=== PATIENT | male | born 1990 | race Caucasian/White ===

== ENCOUNTER 2019-01-09 22:24 | Inpatient (IN) | payer OTHER ==
[2019-01-09] MEDS ORDERED: SODIUM CHLORIDE 0.9% 1,000 ML IV STA (22:36)
[2019-01-09] MEDS ORDERED: HEPARIN SODIUM,PORCINE 10,000 UNIT/ML 1 ML VIAL IV STA (22:36)
[2019-01-09] MEDS ORDERED: DEXTROSE 5% IN WATER 100 ML with AMIODARONE 150 MG IV ONE (23:00)
[2019-01-09] MEDS ORDERED: AMIODARONE 360 MG in DEXTROSE 5% IN WATER 200 ML IV ONE ×2 (23:00)
--- NOTE | 2019-01-09 23:01 | ED ---
Arrhythmia/Palpitations HPI - General Chief Complaint: Arrhythmia/Palpitations Stated Complaint: Rapid Heart Rate Numbness In Hands/Feet Source: patient Mode of arrival: ambulatory Limitations: no limitations - History of Present Illness Initial Comments: Elias is a previously healthy 28-year-old gentleman who presents to the emergency department today for evaluation of palpitations. She reports that when he went to bed tonight he felt like his heart was beating very hard, his who is an ICU nurse felt his pulse and noted that it was very fast and irregular which prompted her to bring him to the emergency department for evaluation. Patient denies any chest pain but does report that while he was coming to the hospital he did begin to feel some shortness of breath and lightheadedness. She denies any previous cardiac history. 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 - Related Data Home Medications Medication Instructions Recorded Confirmed No Known Home Medications 01/09/19 01/09/19 Allergies Allergy/AdvReac Type Severity Reaction Status Date / Time No Known Allergies Allergy Verified 01/09/19 22:44 Review of Systems ROS Statement: Those systems with pertinent positive or pertinent negative responses have been documented in the HPI. ROS Other: All systems not noted in ROS Statement are negative. Past Medical History Past Medical History: Asthma History of Any Multi-Drug Resistant Organisms: None Reported Past Surgical History: Orthopedic Surgery Additional Past Surgical History / Comment(s): right shoulder, wisdom teeth Past Psychological History: No Psychological Hx Reported Smoking Status: Never smoker Past Alcohol Use History: None Reported Past Drug Use History: None Reported General Exam - General Exam Comments Initial Comments: Physical Exam GENERAL: Patient is well-developed and well-nourished. Patient is nontoxic and well-hydrated and is in no distress. HENT: Normocephalic, Atraumatic. EYES: PERRL, EOMI PULMONARY: Unlabored respirations. CARDIOVASCULAR: Irregularly irregular, tachycardic ABDOMEN: Soft and nontender with normal bowel sounds. SKIN: Skin is clear with no lesions or rashes and otherwise unremarkable. : Deferred NEUROLOGIC: Patient is alert and oriented x3. Moving all extremities spontaneously MUSCULOSKELETAL: Normal extremities with adequate strength and full range of motion. No lower ex tremity swelling or edema. No calf tenderness. PSYCHIATRIC: Normal psychiatric evaluation. Limitations: no limitations Limitations: no limitations Course Vital Signs 01/09/19 01/09/19 01/09/19 22:26 22:42 23:00 Temperature 98.4 F Pulse Rate 114 H 150 H 156 H Respiratory 20 18 18 Rate Blood Pressure 136/88 105/85 116/101 O2 Sat by Pulse 100 100 100 Oximetry 01/09/19 01/09/19 01/10/19 23:30 23:56 00:57 Temperature Pulse Rate 158 H 112 H 108 H Respiratory 18 18 18 Rate Blood Pressure 123/97 134/87 125/92 O2 Sat by Pulse 100 100 99 Oximetry EKG Findings - EKG Comments: EKG Findings:: Initial EKG at 2235 narrow complex irregularly irregular tachycardia with a rate of 151 concerning for A. fib with RVR. There is normal axis, QRS 98, QTC prolonged 602. No acute ST elevations or depressions no evidence of acute ischemia or infarction. Repeat EKG obtained at 2258, narrow complex irregularly irregular tachycardia with a rate 175 again concerning for A. fib with RVR. There are 78, QTC [address] elevations depressions no evidence of acute ischemia or infarction Medical Decision Making - Medical Decision Making Patient was seen and evaluated history is obtained from patient at bedside Previously healthy 28-year-old male presenting with palpitations EKG concerning for A. 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 Patient's heart rate improving with amiodarone patient feeling much better heart rate in the 110s Labs were relatively unremarkable TSH is mildly elevated Labs and EKG findings discussed with the patient and at bedside at this time they're agreeable to plan for admission for further evaluation by cardiology - Lab Data Result diagrams: 01/09/19 22:50 01/09/19 22:50 Lab Results 01/09/19 01/09/19 01/09/19 Range/Units 22:50 22:50 22:50 WBC 10.1 (3.8-10.6) k/uL RBC 5.69 (4.30-5.90) m/uL Hgb 16.3 (13.0-17.5) gm/dL Hct 49.3 (39.0-53.0) % MCV 86.6 (80.0-100.0) fL MCH 28.6 (25.0-35.0) pg MCHC 33.0 (31.0-37.0) g/dL RDW 13.2 (11.5-15.5) % Plt Count 244 (150-450) k/uL Neutrophils % 51 % Lymphocytes % 38 % Monocytes % 5 % Eosinophils % 2 % Basophils % 1 % Neutrophils # 5.2 (1.3-7.7) k/uL Lymphocytes # 3.9 (1.0-4.8) k/uL Monocytes # 0.5 (0-1.0) k/uL Eosinophils # 0.2 (0-0.7) k/uL Basophils # 0.1 (0-0.2) k/uL PT 9.6 (9.0-12.0) sec INR 0.9 (<1.2) APTT 24.6 (22.0-30.0) sec Sodium 144 (137-145) mmol/L Potassium 3.7 (3.5-5.1) mmol/L Chloride 109 H (98-107) mmol/L Carbon Dioxide 23 (22-30) mmol/L Anion Gap 12 mmol/L BUN 13 (9-20) mg/dL Creatinine 0.76 (0.66-1.25) mg/dL Est GFR (CKD-EPI)AfAm >90 (>60 ml/min/1.73 sqM) Est GFR (CKD-EPI)NonAf >90 (>60 ml/min/1.73 sqM) Glucose 91 (74-99) mg/dL Calcium 10.0 (8.4-10.2) mg/dL Magnesium 1.9 (1.6-2.3) mg/dL Total Bilirubin 0.4 (0.2-1.3) mg/dL AST 29 (17-59) U/L ALT 53 (21-72) U/L Alkaline Phosphatase 103 (38-126) U/L Troponin I (0.000-0.034) ng/mL Total Protein 8.0 (6.3-8.2) g/dL Albumin 5.0 (3.5-5.0) g/dL TSH 5.120 H (0.465-4.680) mIU/L Urine Opiates Screen (NotDetected) Ur Oxycodone Screen (NotDetected) Urine Methadone Screen (NotDetected) Ur Propoxyphene Screen (NotDetected) Ur Barbiturates Screen (NotDetected) U Tricyclic Antidepress (NotDetected) Ur Phencyclidine Scrn (NotDetected) Ur Amphetamines Screen (NotDetected) U Methamphetamines Scrn (NotDetected) U Benzodiazepines Scrn (NotDetected) Urine Cocaine Screen (NotDetected) U Marijuana (THC) Screen (NotDetected) 01/09/19 01/09/19 Range/Units 22:50 23:20 WBC (3.8-10.6) k/uL RBC (4.30-5.90) m/uL Hgb (13.0-17.5) gm/dL Hct (39.0-53.0) % MCV (80.0-100.0) fL MCH (25.0-35.0) pg MCHC (31.0-37.0) g/dL RDW (11.5-15.5) % Plt Count (150-450) k/uL Neutrophils % % Lymphocytes % % Monocytes % % Eosinophils % % Basophils % % Neutrophils # (1.3-7.7) k/uL Lymphocytes # (1.0-4.8) k/uL Monocytes # (0-1.0) k/uL Eosinophils # (0-0.7) k/uL Basophils # (0-0.2) k/uL PT (9.0-12.0) sec INR (<1.2) APTT (22.0-30.0) sec Sodium (137-145) mmol/L Potassium (3.5-5.1) mmol/L Chloride (98-107) mmol/L Carbon Dioxide (22-30) mmol/L Anion Gap mmol/L BUN (9-20) mg/dL Creatinine (0.66-1.25) mg/dL Est GFR (CKD-EPI)AfAm (>60 ml/min/1.73 sqM) Est GFR (CKD-EPI)NonAf (>60 ml/min/1.73 sqM) Glucose (74-99) mg/dL Calcium (8.4-10.2) mg/dL Magnesium (1.6-2.3) mg/dL Total Bilirubin (0.2-1.3) mg/dL AST (17-59) U/L ALT (21-72) U/L Alkaline Phosphatase (38-126) U/L Troponin I <0.012 (0.000-0.034) ng/mL Total Protein (6.3-8.2) g/dL Albumin (3.5-5.0) g/dL TSH (0.465-4.680) mIU/L Urine Opiates Screen Not Detected (NotDetected) Ur Oxycodone Screen Not Detected (NotDetected) Urine Methadone Screen Not Detected (NotDetected) Ur Propoxyphene Screen Not Detected (NotDetected) Ur Barbiturates Screen Not Detected (NotDetected) U Tricyclic Antidepress Not Detected (NotDetected) Ur Phencyclidine Scrn Not Detected (NotDetected) Ur Amphetamines Screen Not Detected (NotDetected) U Methamphetamines Scrn Not Detected (NotDetected) U Benzodiazepines Scrn Not Detected (NotDetected) Urine Cocaine Screen Not Detected (NotDetected) U Marijuana (THC) Screen Not Detected (NotDetected) Critical Care Time Critical Care Time: Yes Total Critical Care Time: 30 Critical Care Time: Critical Care Critical care time was exclusive of separately billable procedures and treating other patients. Critical care was necessary to treat or prevent imminent or life-threatening deterioration. Critical care was time spent personally by me on the following activities: development of treatment plan with patient or surrogate, discussions with consultants, discussions with primary provider, evaluation of patient's response to treatment, examination of patient, obtaining history from patient or surrogate, ordering and performing treatments and interventions, ordering and review of laboratory studies, ordering and review of radiographic studies, pulse oximetry, re-evaluation of patient's condition and review of old charts. Disposition Clinical Impression: Atrial fibrillation Disposition: ADMITTED IP TO THIS [facility] Condition: Stable Is patient prescribed a controlled substance at d/c from ED?: No
[2019-01-09] MEDS: HEPARIN SOD,PORK IN 0.45% NACL 25,000 UNIT in 0.45% NACL 1 250ML.BAG IV SCH (23:07)
[2019-01-09 23:12] LABS: Basophils # (A) 0.1 k/uL (0-0.2); Basophils % (A) 1 %; Eosinophils # (A) 0.2 k/uL (0-0.7); Eosinophils % (A) 2 %; HCT 49.3 % (39.0-53.0); HGB 16.3 gm/dL (13.0-17.5); Lymphocytes # (A) 3.9 k/uL (1.0-4.8); Lymphocytes % (A) 38 %; MCH 28.6 pg (25.0-35.0); MCV 86.6 fL (80.0-100.0); Mean Platelet Volume 7.4; Monocytes # (A) 0.5 k/uL (0-1.0); Monocytes % (A) 5 %; Neutrophils # (A) 5.2 k/uL (1.3-7.7); Neutrophils % (A) 51 %; Platelet Count 244 k/uL (150-450); RBC 5.69 m/uL (4.30-5.90); RDW 13.2 % (11.5-15.5); WBC 10.1 k/uL (3.8-10.6)
[2019-01-09 23:20] LABS: INR 0.9 (<1.2); Partial Thromboplastin Time 24.6 sec (22.0-30.0); Prothrombin Time 9.6 sec (9.0-12.0)
[2019-01-09 23:24] LABS: ALT 53 U/L (21-72); AST 29 U/L (17-59); Alkaline Phosphatase 103 U/L (38-126); Anion Gap 12 mmol/L; Blood Urea Nitrogen 13 mg/dL (9-20); Carbon Dioxide 23 mmol/L (22-30); Chloride 109 mmol/L (98-107); Glucose 91 mg/dL (74-99); Magnesium 1.9 mg/dL (1.6-2.3); Potassium 3.7 mmol/L (3.5-5.1); Sodium 144 mmol/L (137-145); Total Bilirubin 0.4 mg/dL (0.2-1.3)
[2019-01-09 23:48] LABS: Amphetamine Screen,Urine Not Detected (NotDetected); Barbiturate Screen,Urine Not Detected (NotDetected); Benzodiazepines Screen,Urine Not Detected (NotDetected); Cocaine Screen,Urine Not Detected (NotDetected); Methadone Screen, Urine Not Detected (NotDetected); Opiate Screen,Urine Not Detected (NotDetected); Oxycodone Screen, Urine Not Detected (NotDetected); Phencyclidine Screen,Urine Not Detected (NotDetected); Tricyclic Antidepressant,Urine Not Detected (NotDetected); Urn Cannabinoid Scrn Not Detected (NotDetected)
--- NOTE | 2019-01-09 23:57 | XR ---
EXAM: XR Chest, 1 View CLINICAL HISTORY: ITS.REASON XR Reason: Pain TECHNIQUE: Frontal view of the chest. COMPARISON: No relevant prior studies available. FINDINGS: Lungs: Unremarkable. No consolidation. Pleural space: Unremarkable. No pneumothorax. Heart: No pneumomediastinum. Mediastinum: Unremarkable. Bones/joints: No definite fracture. IMPRESSION: No acute findings.
[2019-01-10] MEDS ORDERED: AMIODARONE 300 MG in DEXTROSE 5% IN WATER 250 ML IV SCH ×2 (05:00)
[2019-01-10 06:40] LABS: Cholesterol 128 mg/dL (<200); HDL Cholesterol 37 mg/dL (40-60); LDL Cholesterol,Calculated 76 mg/dL (0-99); Triglycerides 73 mg/dL (<150)
[2019-01-10] MEDS ORDERED: FLECAINIDE 50 MG TAB PO STA (08:22)
[2019-01-10] MEDS: VERAPAMIL 40 MG TAB PO SCH ×3 (09:03→20:25)
--- NOTE | 2019-01-10 10:31 | P.CRDCN ---
History of Present Illness History of present illness: This is Dr. Narvaez dictating a consult on this patient The patient was interviewed and examined by me IMPRESSION / ASSESSMENT: Paroxysmal atrial fibrillation with RVR Recurrent PLAN: Stop IV amiodarone Start flecainide 100 mg twice daily Observe on telemetry for 24 hours Initiate verapamil 40 mg 3 times a day and upon discharge this can be changed to long-acting verapamil SR 120 mg by mouth daily 2-D echo and Doppler study only once his heart rates are controlled HPI Patient has been feeling ordered and he feels his heart is racing. He came to the hospital and he is found to be in atrial fibrillation RVR He's had brief palpitations in the past but he does not remember having sustained palpitations No chest pain no shortness of breath no dizziness lightheadedness He looks comfortable ROS: No fever chills or rigors, no cough, phlegm or expectoration, no nausea, vomiting or diarrhea, no hematuria, dysuria, no musculoskeletal complaints, no strokes or seizures, no skin lesions. EXAMINATION: Blood pressure 106/77 mmHg, pulse rate was about 130 150 beats a minute did he come back into atrial fibrillation Breath sounds are clear no rhonchi no crackles Heart sounds. Normal no murmurs or gallop. Rhythm is irregular Abdomen soft nontender Extremities warm no edema REVIEW OF LABS, ECG & MEDICAL DATA Hemoglobin 16.3 Sodium 144 potassium 3.7 BUN 13 creatinine 0.76 TSH 5.1 HDL 37 LDL 76 Troponins are normal Past Medical History Past Medical History: Asthma History of Any Multi-Drug Resistant Organisms: None Reported Past Surgical History: Orthopedic Surgery Additional Past Surgical History / Comment(s): right shoulder, wisdom teeth Past Psychological History: No Psychological Hx Reported Smoking Status: Never smoker Past Alcohol Use History: None Reported Past Drug Use History: None Reported Medications and Allergies Home Medications Medication Instructions Recorded Confirmed Type No Known Home Medications 01/09/19 01/09/19 History Allergies Allergy/AdvReac Type Severity Reaction Status Date / Time No Known Allergies Allergy Verified 01/09/19 22:44 Physical Exam Vitals: Vital Signs Temp Pulse Pulse Resp BP BP Pulse Ox 01/10/19 09:00 97.6 F 70 20 108/83 98 01/10/19 04:12 83 18 107/71 97 01/10/19 04:00 97 16 106/77 98 01/10/19 03:00 96 18 119/93 97 01/10/19 00:57 108 H 18 125/92 99 01/09/19 23:56 112 H 18 134/87 100 01/09/19 23:30 158 H 18 123/97 100 01/09/19 23:00 156 H 18 116/101 100 01/09/19 22:42 150 H 18 105/85 100 01/09/19 22:26 98.4 F 114 H 20 136/88 100 Intake and Output 01/09/19 01/10/19 01/10/19 22:59 06:59 14:59 Intake Total 78.538 Balance 78.538 Intake: Intake, IV Titration 78.538 Amount Heparin Sod,Pork in 0.45% 78.538 NaCl 25,000 unit In 0.45 % NaCl 1 250ml.bag @ 9 UNITS/KG/HR 9.879 mls/hr IV .Q24H [facility] Rx#: [id number] Other: Weight 109.769 kg Results 01/09/19 22:50 01/09/19 22:50 Cardiac Enzymes 01/09/19 01/09/19 01/10/19 Range/Units 22:50 22:50 05:55 AST 29 (17-59) U/L Troponin I <0.012 <0.012 (0.000-0.034) ng/mL Coagulation 01/09/19 01/10/19 Range/Units 22:50 05:55 PT 9.6 (9.0-12.0) sec APTT 24.6 32.2 H (22.0-30.0) sec Lipids 01/10/19 Range/Units 05:55 Triglycerides 73 (<150) mg/dL Cholesterol 128 (<200) mg/dL HDL Cholesterol 37 L (40-60) mg/dL CBC 01/09/19 Range/Units 22:50 WBC 10.1 (3.8-10.6) k/uL RBC 5.69 (4.30-5.90) m/uL Hgb 16.3 (13.0-17.5) gm/dL Hct 49.3 (39.0-53.0) % Plt Count 244 (150-450) k/uL Comprehensive Metabolic Panel 01/09/19 Range/Units 22:50 Sodium 144 (137-145) mmol/L Potassium 3.7 (3.5-5.1) mmol/L Chloride 109 H (98-107) mmol/L Carbon Dioxide 23 (22-30) mmol/L BUN 13 (9-20) mg/dL Creatinine 0.76 (0.66-1.25) mg/dL Glucose 91 (74-99) mg/dL Calcium 10.0 (8.4-10.2) mg/dL AST 29 (17-59) U/L ALT 53 (21-72) U/L Alkaline Phosphatase 103 (38-126) U/L Total Protein 8.0 (6.3-8.2) g/dL Albumin 5.0 (3.5-5.0) g/dL Current Medications Generic Name Dose Route Start Last Admin Trade Name Losq PRN Reason Stop Dose Admin Flecainide Acetate 100 mg 01/10/19 21:00 Tambocor PO Q12HR [facility] Heparin Sodium/Sodium Chloride 250 mls @ 9.879 mls/hr 01/09/19 22:45 01/10/19 07:04 25,000 unit/ Sodium Chloride IV 12 units/kg/hr .Q24H [facility] 13.172 mls/hr Titration Protocol 9 UNITS/KG/HR Verapamil HCl 40 mg 01/10/19 09:00 01/10/19 09:03 Isoptin PO 40 mg TID [facility] Administration Intake and Output 01/09/19 01/10/19 01/10/19 22:59 06:59 14:59 Intake Total 78.538 Balance 78.538 Intake: Intake, IV Titration 78.538 Amount Heparin Sod,Pork in 0.45% 78.538 NaCl 25,000 unit In 0.45 % NaCl 1 250ml.bag @ 9 UNITS/KG/HR 9.879 mls/hr IV .Q24H [facility] Rx#: [id number] Other: Weight 109.769 kg 01/09/19 22:50 01/09/19 22:50
--- NOTE | 2019-01-10 15:27 | P.HPIM ---
History of Present Illness 28-year-old the pleasant male came in with comments of palpitations with which presently resolved patient is found to be in atrial fibrillation patient was given amiodarone after which patient converted to sinus rhythm patient is pre sently on heparin patient Christian- Vasc score is 0 although patient has elevated TSH will obtain T4 levels. Patient denied any fever chills doesn't have any signs or symptoms of sepsis denied any recent diarrhea denied any recent medication use. Patient is comparing of some lightheadedness denied any chest pain her libido shortness of breath which presently resolved patient will be monitored overnight here. We'll await the T4 levels possibility of discharge tomorrow. Review of Systems REVIEW OF SYSTEMS: CONSTITUTIONAL: No fever, no malaise, no fatigue. HEENT: No recent visual problems or hearing problems. Denied any sore throat. CARDIOVASCULAR: As mentioned in HPI PULMONARY: no cough, no hemoptysis. GASTROINTESTINAL: No diarrhea, no nausea, no vomiting, no abdominal pain. NEUROLOGICAL: No headaches, no weakness, no numbness. HEMATOLOGICAL: Denies any bleeding or petechiae. GENITOURINARY: Denies any burning micturition, frequency, or urgency. MUSCULOSKELETAL/RHEUMATOLOGICAL: Denies any joint pain, swelling, or any muscle pain. ENDOCRINE: Denies any polyuria or polydipsia. The rest of the 14-point review of systems is negative. 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 Medications and Allergies Home Medications Medication Instructions Recorded Confirmed Type No Known Home Medications 01/09/19 01/09/19 History Allergies Allergy/AdvReac Type Severity Reaction Status Date / Time No Known Allergies Allergy Verified 01/09/19 22:44 Physical Exam Vitals: Vital Signs Temp Pulse Pulse Resp BP BP Pulse Ox 01/10/19 13:52 60 20 113/76 98 01/10/19 11:25 64 18 106/73 97 01/10/19 09:00 97.6 F 70 20 108/83 98 01/10/19 04:12 83 18 107/71 97 01/10/19 04:00 97 16 106/77 98 01/10/19 03:00 96 18 119/93 97 01/10/19 00:57 108 H 18 125/92 99 01/09/19 23:56 112 H 18 134/87 100 01/09/19 23:30 158 H 18 123/97 100 01/09/19 23:00 156 H 18 116/101 100 01/09/19 22:42 150 H 18 105/85 100 01/09/19 22:26 98.4 F 114 H 20 136/88 100 Intake and Output 01/10/19 01/10/19 01/10/19 06:59 14:59 22:59 Intake Total 78.538 Balance 78.538 Intake: Intake, IV Titration 78.538 Amount Heparin Sod,Pork in 0.45% 78.538 NaCl 25,000 unit In 0.45 % NaCl 1 250ml.bag @ 9 UNITS/KG/HR 9.879 mls/hr IV .Q24H [facility] Rx#: [id number] PHYSICAL EXAMINATION: GENERAL: The patient is alert and oriented x3, not in any acute distress. Well developed, well nourished. HEENT: Pupils are round and equally reacting to light. EOMI. No scleral icterus. No conjunctival pallor. Normocephalic, atraumatic. No pharyngeal erythema. No thyromegaly. CARDIOVASCULAR: S1 and S2 present. No murmurs, rubs, or gallops. PULMONARY: Chest is clear to auscultation, no wheezing or crackles. ABDOMEN: Soft, nontender, nondistended, normoactive bowel sounds. No palpable organomegaly. MUSCULOSKELETAL: No joint swelling or deformity. EXTREMITIES: No cyanosis, clubbing, or pedal edema. NEUROLOGICAL: Gross neurological examination did not reveal any focal deficits. SKIN: No rashes. Results CBC & Chem 7: 01/09/19 22:50 01/09/19 22:50 Labs: Abnormal Lab Results - Last 24 Hours (Table) 04/11/19 04/12/19 04/12/19 Range/Units 22:50 05:55 05:55 APTT 32.2 H (22.0-30.0) sec Chloride 109 H (98-107) mmol/L HDL Cholesterol 37 L (40-60) mg/dL TSH 5.120 H (0.465-4.680) mIU/L Thrombosis Risk Factor Assmnt - Choose All That Apply Any of the Below Risk Factors Present?: Yes Each Factor Represents 1 point: Obesity (BMI >25) Other Risk Factors: No Other congenital or acquired thrombophilia - If yes, enter type in comment: No Thrombosis Risk Factor Assessment Total Risk Factor Score: 1 Thrombosis Risk Factor Assessment Level: Low Risk Assessment and Plan Plan: -New onset atrial fibrillation: Patient is presently sinus rhythm rate controlled and patient was started on flecainide and verapamil presently on heparin may not require long-term anti-correlation except for aspirin with history of paroxysmal A. fib. Elevated TSH will obtain T4 levels -Exercising use asthma not in acute exacerbation
--- NOTE | 2019-01-10 19:12 | ECHOF ---
Referral Reason:arrhythmia MEASUREMENTS -------- HEIGHT: 177.8 cm WEIGHT: 109.8 kg BP: 106/77 RVIDd: 3.3 cm (< 3.3) IVSd: 1.2 cm (0.6 - 1.1) LVIDd: 4.8 cm (3.9 - 5.3) LVPWd: 1.1 cm (0.6 - 1.1) IVSs: 1.4 cm LVIDs: 3.8 cm LVPWs: 1.7 cm LA Diam: 3.2 cm (2.7 - 3.8) LAESV Index (A-L): 21.93 ml/m Ao Diam: 3.4 cm (2.0 - 3.7) AV Cusp: 2.5 cm (1.5 - 2.6) MV EXCURSION: 14.924 mm (> 18.000) MV EF SLOPE: 107 mm/s (70 - 150) EPSS: 1.0 cm MV E Rad: 0.70 m/s MV DecT: 261 ms MV A Rad: 0.53 m/s MV E/A Ratio: 1.32 RAP: 5.00 mmHg RVSP: 22.41 mmHg FINDINGS -------- Sinus rhythm. This was a technically good study. The left ventricular size is normal. There is borderline concentric left ventricular hypertrophy. Overall left ventricular systolic function is low-normal with, an EF between 50 - 55 %. The right ventricle is mildly enlarged. Normal LA size by volume 22+/-6 ml/m2. The right atrium is normal in size. The aortic valve is trileaflet and appears structurally normal. There is trace to mild mitral regurgitation. Mild tricuspid regurgitation present. Right ventricular systolic pressure is normal at < 35 mmHg. Trace/mild (physiologic) pulmonic regurgitation. The aortic root size is normal. Normal inferior vena cava with normal inspiratory collapse consistent with estimated right atrial pre ssure of 5 mmHg. There is no pericardial effusion. CONCLUSIONS -------- 1. Sinus rhythm. 2. This was a technically good study. 3. The left ventricular size is normal. 4. There is borderline concentric left ventricular hypertrophy. 5. Overall left ventricular systolic function is low-normal with, an EF between 50 - 55 %. 6. The right ventricle is mildly enlarged. 7. Normal LA size by volume 22+/-6 ml/m2. 8. The right atrium is normal in size. 9. The aortic valve is trileaflet and appears structurally normal. 10. There is trace to mild mitral regurgitation. 11. Mild tricuspid regurgitation present. 12. Right ventricular systolic pressure is normal at < 35 mmHg. 13. Trace/mild (physiologic) pulmonic regurgitation. 14. The aortic root size is normal. 15. Normal inferior vena cava with normal inspiratory collapse consistent with estimated right atrial pressure of 5 mmHg. 16. There is no pericardial effusion. COMMERCIAL SALES CONSULTANT: Beba Vega RDCS
[2019-01-10] MEDS: FLECAINIDE 50 MG TAB PO SCH (20:26)
[2019-01-10] MEDS: HEPARIN SOD,PORK IN 0.45% NACL 25,000 UNIT in 0.45% NACL 1 250ML.BAG IV SCH (22:45)
[2019-01-11] MEDS: FLECAINIDE 50 MG TAB PO SCH (08:11)
[2019-01-11] MEDS: VERAPAMIL 40 MG TAB PO SCH (08:11)
[2019-01-11 11:20] VITALS: RESP 16; TEMP 97.7
--- NOTE | 2019-01-11 12:20 | P.PN ---
Subjective This is a pleasant 28 year old male with no significant past medical history who presented to the emergency department yesterday with symptoms of palpitations and was found to be in atrial fibrillation with rapid ventricular response. He has converted to sinus mechanism and is currently maintained on verapamil and flecainide. Echocardiogram obtained reveals preserved left ventricular systolic function with ejection fraction 50-55%. He is seen and examined sitting up in the chair with his at the bedside. He denies symptoms of chest discomfort, shortness of breath, dizziness and had no further palpitations. He has been up ambulating in the halls without difficulty or symptoms. GENERAL: Well-appearing, well-nourished and in no acute distress. NECK: Supple without JVD or thyromegaly. LUNGS: Breath sounds clear to auscultation bilaterally. Respiration equal and unlabored. No wheezes, rales or rhonchi. HEART: Regular rate and rhythm without murmurs, rubs or gallops. S1 and S2 heard. EXTREMITIES: Normal range of motion, no edema. No clubbing or cyanosis. Peripheral pulses intact. ASSESSMENT Paroxysmal atrial fibrillation with rapid ventricular response, converted to sinus mechanism PLAN Tolerating flecanide and verapamil. Repeat EKG to be done again this afternoon. Discontinue heparin infusion. May be discharged home on flecanide 100 mg BID and long acting verapamil 120 mg daily. Prescriptions have been sent to the patients pharmacy with instructions for use. Follow up with Dr. Narvaez upon discharge. Nurse Practitioner note has been reviewed, I agree with a documented findings and plan of care. Patient was seen and examined. Objective - Vital Signs Vital signs: Vital Signs Temp 97.7 F 01/11/19 08:00 Pulse 65 01/11/19 08:00 Resp 16 01/11/19 08:00 BP 118/72 01/11/19 08:00 Pulse Ox 97 01/11/19 08:00 Intake & Output 01/10/19 01/11/19 01/11/19 18:59 06:59 18:59 Intake Total 128.666 0673.231 240 Balance 422.353 4431.231 240 Weight 110.3 kg Intake: Intake, IV Titration 195.769 54.231 Amount Heparin Sod,Pork in 0.45% 195.769 54.231 NaCl 25,000 unit In 0.45 % NaCl 1 250ml.bag @ 9 UNITS/KG/HR 9.879 mls/hr IV .Q24H [facility] Rx#: [id number] Oral [id number] [id number] Other: Voiding Method Toilet # Voids 1 - Labs CBC & Chem 7: 01/09/19 22:50 01/09/19 22:50 Labs: Abnormal Lab Results - Last 24 Hours (Table) 01/10/19 01/10/19 01/11/19 Range/Units 14:33 22:14 06:52 APTT 37.5 H 55.3 H 74.5 H (22.0-30.0) sec
[2019-01-11 13:07] VITALS: BP 108/60; PULSE 79
--- NOTE | 2019-01-11 13:36 | P.DS ---
Providers Date of admission: 01/09/19 23:33 Attending physician: Marissa Rg Consults: 01/09/19 23:33 Consult Physician Urgent Consulting Provider: Tawanda Patel Consult Reason/Comments: new afib rvr Do you want consulting provider notified?: Yes Primary care physician: Dawn Jennings [facility] Course: Patient admitted for new onset A. fib presently sinus rhythm converted to sinus rhythm on amiodarone. Patient is being discharged on flecainide and verapamil as per cardiology patient will be discharged on aspirin 81 mg as his risk score is 0. PHYSICAL EXAMINATION: GENERAL: The patient is alert and oriented x3, not in any acute distress. Well developed, well nourished. HEENT: Pupils are round and equally reacting to light. EOMI. No scleral icterus. No conjunctival pallor. Normocephalic, atraumatic. No pharyngeal erythema. No thyromegaly. CARDIOVASCULAR: S1 and S2 present. No murmurs, rubs, or gallops. PULMONARY: Chest is clear to auscultation, no wheezing or crackles. ABDOMEN: Soft, nontender, nondistended, normoactive bowel sounds. No palpable organomegaly. MUSCULOSKELETAL: No joint swelling or deformity. EXTREMITIES: No cyanosis, clubbing, or pedal edema. NEUROLOGICAL: Gross neurological examination did not reveal any focal deficits. SKIN: No rashes. Patient does have elevated TSH but normal T4 recommend to repeat TSH in about a month. No further intervention. For other medical problems and hospitalization course please refer to my HPI from yesterday Patient Condition at Discharge: Stable Plan - Discharge Summary Discharge Rx Participant: No New Discharge Prescriptions: New Flecainide [Tambocor] 100 mg PO Q12HR #180 tab Aspirin 81 mg PO DAILY #30 chewable Verapamil Sr [Isoptin Sr] 120 mg PO DAILY #90 tablet.er Discharge Medication List Aspirin 81 mg PO DAILY #30 chewable 01/11/19 [Rx] Flecainide [Tambocor] 100 mg PO Q12HR #180 tab 01/11/19 [Rx] Verapamil Sr [Isoptin Sr] 120 mg PO DAILY #90 tablet.er 01/11/19 [Rx] Follow up Appointment(s)/Referral(s): Bill Narvaez MD [STAFF PHYSICIAN] - 1 Week (Please call office Ray morning to schedule follow appointment for Sunday with Dr Narvaez. ) Dawn Jennings DO [Primary Care Provider] - 3 Days (Please call Sunday morning to schedule follow up appointment. ) Patient Instructions/Handouts: A-fib (Atrial Fibrillation) (DC) Discharge Disposition: HOME SELF-CARE
[2019-01-11] MEDS ORDERED: FLECAINIDE 50 MG TAB PO SCH (21:00)
== END 2019-01-11 13:55 | disposition home or self-care (01) | DRG 310 ==
LOC: EC 22:24 → 3SCARD 23:33
PROVIDERS: ADMIT Hospitalist; ATTEND Hospitalist
DX: I48.0 Paroxysmal atrial fibrillation (principal); E66.9 Obesity, unspecified; Z68.34 Body mass index [BMI] 34.0-34.9, adult; J45.990 Exercise induced bronchospasm; Z82.49 Family history of ischemic heart disease and other diseases of the circulatory system; R94.6 Abnormal results of thyroid function studies
CPT/HCPCS: 36415; 71045; 80053; 80061; 80306; 83735; 84439; 84443; 84484; 85025; 85610; 85730; 93005; 93306; 96365; 96366; 96376; 99291